=== PATIENT | male | born 1975 | race African-American/Black ===

== ENCOUNTER 2016-06-29 09:14 | Outpatient (CLI) | payer OTHER ==
[2016-06-29 13:01] LABS: Anion Gap 15 mmol/L (10-20); BUN (Urea Nitrogen) 13 mg/dL (8.9-20.6); Calc. Creatinine Clearance 0 mL/min (70-130); Calcium 9.6 mg/dL (7.8-10.44); Carbon Dioxide 28 mmol/L (22-29); Cardiac Risk 5.3 (Less than 4.5); Chloride 102 mmol/L (98-107); Cholesterol 239 mg/dL (< 200 Desired); Estimated GFR-MDRD Greater than 90; Glucose 87 mg/dL (70-105); HDL Cholesterol 45 mg/dL (>60 Neg Risk); LDL Cholesterol, Calculated 159 mg/dL; Potassium 4.4 mmol/L (3.5-5.1); Sodium 141 mmol/L (136-145); Triglycerides 176 mg/dL (Less than 150)
== END 2016-06-29 09:15 ==
LOC: NAVSJIPCSP 09:14
PROVIDERS: ATTEND Internal Medicine
DX: E78.5 Hyperlipidemia, unspecified (principal); I11.9 Hypertensive heart disease without heart failure
CPT/HCPCS: 36415; 80048; 80061

== ENCOUNTER 2016-10-12 08:38 | Outpatient (CLI) | payer OTHER ==
[2016-10-12 12:36] LABS: Cardiac Risk 5.5 (Less than 4.5)
== END 2016-10-12 08:39 | disposition home or self-care (01) ==
LOC: NAVSJIPCSP 08:38
PROVIDERS: ATTEND Internal Medicine
DX: E78.5 Hyperlipidemia, unspecified (principal)
CPT/HCPCS: 36415; 80061

== ENCOUNTER 2017-01-20 08:38 | Emergency (ER) | payer OTHER ==
[2017-01-20] MEDS ORDERED: Fentanyl 100 MCG/2 ML VIAL ONE ×3 (09:22→11:10)
[2017-01-20] MEDS ORDERED: Ondansetron HCl/PF 4 MG/2 ML Vial ONE (09:23)
[2017-01-20] MEDS ORDERED: Sodium Chloride 0.9% 1,000 ML ONE ×3 (09:23→11:29)
[2017-01-20 09:57] LABS: ALT (SGPT) 12 U/L (8-55); AST (SGOT) 15 U/L (5-34); Albumin 4.2 g/dL (3.5-5.0); Alkaline Phosphatase 58 U/L (40-150); Anion Gap 15 mmol/L (10-20); BUN (Urea Nitrogen) 10 mg/dL (8.9-20.6); Bilirubin, Total 0.7 mg/dL (0.2-1.2); Calc. Creatinine Clearance 0 mL/min (70-130); Calcium 9.5 mg/dL (7.8-10.44); Carbon Dioxide 27 mmol/L (22-29); Chloride 100 mmol/L (98-107); Estimated GFR-MDRD Greater than 90; Globulin 3.7 g/dL (2.4-3.5); Glucose 117 mg/dL (70-105); Lipase 25 U/L (8-78); Potassium 3.9 mmol/L (3.5-5.1); Protein, Total 7.9 g/dL (6.0-8.3); Sodium 138 mmol/L (136-145)
[2017-01-20 10:03] LABS: Hemoglobin 14.6 g/dL (14.0-18.0); MDiff Complete? YES; Mean Corpuscular HGB CONC 30.8 g/dL (32.0-36.0); Mean Corpuscular Hemoglobin 27.4 pg (27.0-31.0); Mean Corpuscular Volume 88.9 fl (80.0-94.0); Mean Platelet Volume 10.5 fL (7.4-10.4); Platelet Count 203 thou/uL (130-400); Red Blood Cell (RBC) Count 5.31 mill/uL (4.70-6.10); White Blood Cell (WBC) Count 9.1 thou/uL (4.8-10.8)
[2017-01-20 10:04] LABS: Lymphocytes 23 % (21-51); Monocytes 4 % (0-10); Neutrophil 73 % (42-75); PLT Morphology Comment Appears Adequate
[2017-01-20 11:13] LABS: Bilirubin Negative (Negative); Blood, Urine Negative (Negative); Clarity Cloudy (Clear); Glucose, Urine (Dipstick) Negative (Negative); Leukocyte Negative (Negative); Nitrite Negative (Negative); Protein, Urine (Dipstick) 30 mg/dL (Neg-Trace); Urobilinogen 0.2 mg/dL (0.2-1.0); pH, Urine 8.5 (5.0-9.0)
[2017-01-20 11:20] LABS: Bacteria/HPF Rare-Few HPF (None Seen); RBC/HPF None Seen HPF (0-3); Squamous Epithelial 0-3 HPF (0-3); WBC/HPF 0-3 HPF (0-3)
[2017-01-20 11:21] LABS: Crystals/HPF 2+ AMORPH PHOS HPF (Negative)
--- NOTE | 2017-01-20 12:06 | RAD ---
ABDOMEN 2 VIEWS WITH 1 VIEW CHEST XRAY: HISTORY: Vomiting. Pain. FINDINGS: Lungs are clear. No pneumothorax or effusion. Cardiac silhouette and mediastinal contours are norm al. Dilated loops of large or small bowel. No evidence of calcification projecting over the renal shado ws. Five [id number] lumbar-type vertebrae. No air fluid levels are present. IMPRESSION: No acute abnormality. POS: H
== END 2017-01-20 11:41 | disposition short-term general hospital (02) ==
LOC: NAV ERS 08:38
DX: R10.11 Right upper quadrant pain (principal); R10.13 Epigastric pain; I10 Essential (primary) hypertension; E78.5 Hyperlipidemia, unspecified; Z79.899 Other long term (current) drug therapy
CPT/HCPCS: 74022; 80053; 81003; 81015; 83690; 85025; 96361; 96374; 96375; 96376; J2405; J3010; J7050

== ENCOUNTER 2018-09-23 12:32 | Emergency (ER) | payer OTHER | END 2018-09-23 13:11 | disposition home or self-care (01) | LOC: NAV ERS 12:32 | DX: M54.12 Radiculopathy, cervical region (principal); I10 Essential (primary) hypertension; E78.5 Hyperlipidemia, unspecified; Z79.899 Other long term (current) drug therapy | CPT/HCPCS: 99283 ==

== ENCOUNTER 2018-10-01 08:51 | Outpatient (CLI) | payer OTHER ==
--- NOTE | 2018-10-01 09:33 | RAD ---
EXAM: Cervical spine 5 views including oblique views HISTORY: Right-sided neck pain without injury COMPARISON: None FINDINGS: C7 and T1 are most secured on the lateral view and portions of C1 and the tip of the odontoid are sec ured on the AP open mouth view. No evidence for acute fracture or dislocation involving the visualized spine. There are disc osteophytosis and facet arthrosis changes. No evidence for malalignment. No evidence for a bone lesion. IMPRESSION: Spondylosis. No significant acute process.
== END 2018-10-01 08:52 | disposition home or self-care (01) ==
LOC: NAV RAD 08:51
PROVIDERS: ATTEND Nurse Practitioner Adult Health
DX: M54.2 Cervicalgia (principal); M47.812 Spondylosis without myelopathy or radiculopathy, cervical region
CPT/HCPCS: 72050